=== PATIENT | female | born 1950 | race Caucasian/White ===

== ENCOUNTER 2019-01-10 11:20 | Outpatient (CLI) | payer MEDICARE, SELFPAY ==
[2019-01-10 12:07] LABS: Absolute Basophil Count 0.07 k/cumm (0.0-0.2); Absolute Eosinophil Count 0.06 k/cumm (0.0-0.7); Absolute Monocyte Count 0.83 k/cumm (0.11-0.7); Absolute Neutrophil Count 12.11 k/cumm (1.2-6.7); Basophils % 0.5; Eosinophils % 0.4; HCT 39.5 % (36.0-46.0); HGB 12.8 g/dL (12.0-15.5); Immature Grans % 1.4; Lymphocytes % 10.3; Mean Corp. HGB Concentration 32.4 g/dL (32.0-36.0); Mean Corpuscular Hemoglobin 27.8 pg (27.0-33.0); Mean Corpuscular Volume 85.7 fL (80-95); Mean Platelet Volume 12.1 fL (8.0-11.0); Monocytes % 5.6; Neutrophils % 81.8; Platelet Count 264 x1000/uL (130-400); RBC 4.61 m/cumm (4.00-5.20); RBC Distribution Width 15.6 % (11.7-14.6)
[2019-01-10 12:09] LABS: Absolute Lymphocyte Count 1.52 k/cumm (1.2-3.4)
[2019-01-10 12:44] LABS: ALT 34 U/L (12-78); AST 13 U/L (15-37); Albumin 3.3 g/dL (3.4-5.0); Alkaline Phosphatase 98 U/L (46-116); Anion Gap 11.6 mmol/L (3-11); BUN 21 mg/dL (7-18); Bilirubin, Total 0.2 mg/dL (0.2-1.0); CO2 22.4 mmol/L (21.0-32.0); CREATININE 1.28 mg/dL (0.55-1.02); Calcium 9.2 mg/dL (8.5-10.1); Chloride 95 mmol/L (98-107); Estimated GFR 41.23 (mL/min/1.73m2); Glucose 392 mg/dL (70-100); Potassium 5.7 mmol/L (3.5-5.1); Sodium 129 mmol/L (136-145); Total Protein 6.5 g/dL (6.4-8.2)
[2019-01-13 11:11] LABS: Hepatitis B Surface Ag Negative (NEGAT)
[2019-01-13 11:29] LABS: HBs Antibody, Quant 226.8 mIU/mL; Hepatitis B Surface Ab Positive
[2019-01-13 11:39] LABS: Hep B Core Antibody Negative (NEGAT)
== END 2019-01-10 11:40 ==
PROVIDERS: Visit Provider Psychiatry & Neurology Neurology
DX: C71.9 Malignant neoplasm of brain, unspecified (principal)
CPT/HCPCS: 36415; 80053; 86704; 86706; 87340; 85025; 87350

== ENCOUNTER 2019-01-15 11:12 | Outpatient (CLI) | payer MEDICARE, SELFPAY ==
[2019-01-15 11:38] LABS: Abs Immature Grans 0.09 k/cumm (0.0-0.09); Absolute Basophil Count 0.04 k/cumm (0.0-0.2); Absolute Lymphocyte Count 1.68 k/cumm (1.2-3.4); Absolute Monocyte Count 0.66 k/cumm (0.11-0.7); Basophils % 0.3; Eosinophils % 0.1; HCT 39.9 % (36.0-46.0); Immature Grans % 0.7; Lymphocytes % 12.4; Mean Corp. HGB Concentration 32.6 g/dL (32.0-36.0); Mean Corpuscular Hemoglobin 28.3 pg (27.0-33.0); Mean Corpuscular Volume 86.7 fL (80-95); Mean Platelet Volume 11.8 fL (8.0-11.0); Monocytes % 4.9; Neutrophils % 81.6; Platelet Count 263 x1000/uL (130-400); RBC Distribution Width 15.5 % (11.7-14.6); White Blood Cell Count 13.57 k/cumm (4.4-10.8)
[2019-01-15 11:42] LABS: Absolute Eosinophil Count 0.01 k/cumm (0.0-0.7); Absolute Neutrophil Count 11.07 k/cumm (1.2-6.7)
== END 2019-01-15 11:32 ==
PROVIDERS: Visit Provider Psychiatry & Neurology Neurology
DX: C71.9 Malignant neoplasm of brain, unspecified (principal)
CPT/HCPCS: 36415; 85025

== ENCOUNTER 2019-01-23 11:02 | Outpatient (CLI) | payer MEDICARE, SELFPAY ==
[2019-01-23 11:59] LABS: Abs Immature Grans 0.25 k/cumm (0.0-0.09); Absolute Basophil Count 0.06 k/cumm (0.0-0.2); Absolute Eosinophil Count 0.04 k/cumm (0.0-0.7); Absolute Lymphocyte Count 1.37 k/cumm (1.2-3.4); Absolute Monocyte Count 0.77 k/cumm (0.11-0.7); Absolute Neutrophil Count 10.48 k/cumm (1.2-6.7); Basophils % 0.5; Eosinophils % 0.3; HGB 11.9 g/dL (12.0-15.5); Immature Grans % 1.9; Lymphocytes % 10.6; Mean Corp. HGB Concentration 32.2 g/dL (32.0-36.0); Mean Corpuscular Hemoglobin 28.3 pg (27.0-33.0); Mean Corpuscular Volume 87.9 fL (80-95); Mean Platelet Volume 11.7 fL (8.0-11.0); Monocytes % 5.9; Neutrophils % 80.8; Platelet Count 228 x1000/uL (130-400); RBC 4.21 m/cumm (4.00-5.20); RBC Distribution Width 15.6 % (11.7-14.6); White Blood Cell Count 12.97 k/cumm (4.4-10.8)
== END 2019-01-23 11:22 ==
PROVIDERS: PCP Internal Medicine; Visit Provider Psychiatry & Neurology Neurology
DX: C71.9 Malignant neoplasm of brain, unspecified (principal)
CPT/HCPCS: 36415; 85025

== ENCOUNTER 2019-01-30 11:30 | Outpatient (CLI) | payer MEDICARE, SELFPAY ==
[2019-01-30 12:03] LABS: Abs Immature Grans 0.19 k/cumm (0.0-0.09); Absolute Basophil Count 0.04 k/cumm (0.0-0.2); Absolute Eosinophil Count 0.06 k/cumm (0.0-0.7); Absolute Lymphocyte Count 1.29 k/cumm (1.2-3.4); Absolute Neutrophil Count 11.33 k/cumm (1.2-6.7); Basophils % 0.3; Eosinophils % 0.4; HCT 37.3 % (36.0-46.0); HGB 12.1 g/dL (12.0-15.5); Immature Grans % 1.4; Lymphocytes % 9.3; Mean Corp. HGB Concentration 32.4 g/dL (32.0-36.0); Mean Corpuscular Hemoglobin 28.8 pg (27.0-33.0); Mean Corpuscular Volume 88.8 fL (80-95); Mean Platelet Volume 11.3 fL (8.0-11.0); Monocytes % 6.7; Neutrophils % 81.9; Platelet Count 250 x1000/uL (130-400); RBC Distribution Width 16.1 % (11.7-14.6); White Blood Cell Count 13.83 k/cumm (4.4-10.8)
[2019-01-30 12:04] LABS: Absolute Monocyte Count 0.93 k/cumm (0.11-0.7)
== END 2019-01-30 11:50 ==
PROVIDERS: PCP Internal Medicine; Visit Provider Psychiatry & Neurology Neurology
DX: C71.9 Malignant neoplasm of brain, unspecified (principal)
CPT/HCPCS: 36415; 85025

== ENCOUNTER 2019-02-05 12:31 | Outpatient (CLI) | payer MEDICARE, SELFPAY ==
[2019-02-05 13:07] LABS: Abs Immature Grans 0.13 k/cumm (0.0-0.09); Absolute Basophil Count 0.03 k/cumm (0.0-0.2); Absolute Eosinophil Count 0.05 k/cumm (0.0-0.7); Absolute Lymphocyte Count 0.95 k/cumm (1.2-3.4); Absolute Monocyte Count 0.69 k/cumm (0.11-0.7); Basophils % 0.3; Eosinophils % 0.4; HCT 37.2 % (36.0-46.0); HGB 12.2 g/dL (12.0-15.5); Immature Grans % 1.2; Lymphocytes % 8.4; Mean Corp. HGB Concentration 32.8 g/dL (32.0-36.0); Mean Corpuscular Hemoglobin 29.2 pg (27.0-33.0); Mean Platelet Volume 11.2 fL (8.0-11.0); Monocytes % 6.1; Neutrophils % 83.6; Platelet Count 212 x1000/uL (130-400); RBC 4.18 m/cumm (4.00-5.20); RBC Distribution Width 16.4 % (11.7-14.6); White Blood Cell Count 11.25 k/cumm (4.4-10.8)
[2019-02-05 13:15] LABS: Absolute Neutrophil Count 9.41 k/cumm (1.2-6.7)
[2019-02-05 13:52] LABS: ALT 35 U/L (12-78); AST 16 U/L (15-37); Albumin 3.2 g/dL (3.4-5.0); Alkaline Phosphatase 89 U/L (46-116); Anion Gap 10.1 mmol/L (3-11); BUN 16 mg/dL (7-18); Bilirubin, Total 0.2 mg/dL (0.2-1.0); CO2 25.9 mmol/L (21.0-32.0); CREATININE 1.15 mg/dL (0.55-1.02); Calcium 8.8 mg/dL (8.5-10.1); Chloride 101 mmol/L (98-107); Estimated GFR 46.65 (mL/min/1.73m2); Glucose 357 mg/dL (70-100); Potassium 4.4 mmol/L (3.5-5.1); Sodium 137 mmol/L (136-145); Total Protein 6.1 g/dL (6.4-8.2)
== END 2019-02-05 12:51 ==
PROVIDERS: PCP Internal Medicine; Visit Provider Psychiatry & Neurology Neurology
DX: C71.9 Malignant neoplasm of brain, unspecified (principal)
CPT/HCPCS: 36415; 80053; 85025

== ENCOUNTER 2019-02-13 11:02 | Outpatient (CLI) | payer MEDICARE, SELFPAY ==
[2019-02-13 11:58] LABS: Abs Immature Grans 0.19 k/cumm (0.0-0.09); Absolute Basophil Count 0.05 k/cumm (0.0-0.2); Absolute Eosinophil Count 0.08 k/cumm (0.0-0.7); Absolute Lymphocyte Count 0.65 k/cumm (1.2-3.4); Absolute Monocyte Count 0.77 k/cumm (0.11-0.7); Basophils % 0.4; Eosinophils % 0.7; HCT 37.9 % (36.0-46.0); HGB 12.4 g/dL (12.0-15.5); Immature Grans % 1.6; Lymphocytes % 5.6; Mean Corp. HGB Concentration 32.7 g/dL (32.0-36.0); Mean Corpuscular Hemoglobin 29.2 pg (27.0-33.0); Mean Corpuscular Volume 89.2 fL (80-95); Mean Platelet Volume 11.2 fL (8.0-11.0); Monocytes % 6.6; Neutrophils % 85.1; Platelet Count 175 x1000/uL (130-400); RBC 4.25 m/cumm (4.00-5.20); RBC Distribution Width 16.4 % (11.7-14.6); White Blood Cell Count 11.64 k/cumm (4.4-10.8)
[2019-02-13 11:59] LABS: Absolute Neutrophil Count 9.91 k/cumm (1.2-6.7)
== END 2019-02-13 11:22 ==
PROVIDERS: PCP Internal Medicine; Visit Provider Psychiatry & Neurology Neurology
DX: C71.9 Malignant neoplasm of brain, unspecified (principal)
CPT/HCPCS: 36415; 80053; 85025